=== PATIENT | female | born 1940 | race Caucasian/White ===

== ENCOUNTER 2018-12-30 22:08 | Inpatient (IN) | payer MEDICARE ==
[~2018-12-30] VITALS: Ht 154.9 cm; Wt 70.8 kg
[2018-12-30 23:17] LABS: BASOPHILS % (AUTO) 0.8 % (0.0-5.0); EOSINOPHILS % (AUTO) 1.2 % (0.0-8.0); HEMATOCRIT 39.4 % (36-48); LYMPHOCYTES % (AUTO) 20.1 % (21.0-51.0); MEAN CORPUSCULAR HEMOGLOBIN 29.8 pg (27.0-33.0); MEAN CORPUSCULAR HGB CONC 33.9 g/dL (32.0-36.0); MEAN CORPUSCULAR VOLUME 87.7 fL (79-99); NEUTROPHILS % (AUTO) 70.9 % (40.0-77.0); PLATELET COUNT (AUTO) 383 K/uL (130-400); RED BLOOD CELL COUNT(AUTO) 4.49 MIL/uL (4.00-5.50); RED CELL DISTRIBUTION WIDTH 13.3 % (11.0-15.5)
[2018-12-30 23:28] LABS: CREATININE 1.1 mg/dL (0.5-1.5); POTASSIUM 4.1 mmol/L (3.5-5.1)
[2018-12-30 23:31] LABS: INR 1.06 (0.85-1.15); PARTIAL THROMBOPLASTIN TIME 44.9 SEC (26.3-35.5); PROTHROMBIN TIME 11.1 SEC (9.6-11.6)
[2018-12-30 23:34] LABS: ALBUMIN 3.8 g/dL (3.5-5.0); BILIRUBIN,TOTAL 0.3 mg/dL (0.2-1.0); TOTAL PROTEIN, SERUM 8.1 g/dL (6.0-8.3)
[2018-12-30 23:51] LABS: B-TYPE NATRIURETIC PEPTIDE 102 pg/mL (0-100)
[2018-12-31] VITALS (7 sets, daily range): BP systolic 121–146; BP diastolic 55–73
[2018-12-31] MEDS ORDERED: MORPHINE SULFATE 2 MG/ML 1ML SYG IV PRN (03:15)
[2018-12-31] MEDS ORDERED: SODIUM CHLORIDE 0.9% 1000ML 1,000 ML IV SCH ×2 (03:45→16:07)
[2018-12-31 05:53] LABS: BASOPHILS % (AUTO) 1.3 % (0.0-5.0); EOSINOPHILS % (AUTO) 1.4 % (0.0-8.0); LYMPHOCYTES % (AUTO) 40.2 % (21.0-51.0); MEAN CORPUSCULAR HEMOGLOBIN 29.7 pg (27.0-33.0); MEAN CORPUSCULAR HGB CONC 33.7 g/dL (32.0-36.0); MEAN CORPUSCULAR VOLUME 88.2 fL (79-99); MONOCYTES % (AUTO) 7.3 % (3.0-13.0); NEUTROPHILS % (AUTO) 49.8 % (40.0-77.0); PLATELET COUNT (AUTO) 373 K/uL (130-400); RED BLOOD CELL COUNT(AUTO) 3.97 MIL/uL (4.00-5.50); RED CELL DISTRIBUTION WIDTH 13.4 % (11.0-15.5); WHITE BLOOD COUNT (AUTO) 8.9 K/uL (4.8-10.8)
[2018-12-31 06:07] LABS: HEMOGLOBIN A1C 5.9 % (4.0-6.0)
[2018-12-31 06:10] LABS: ALBUMIN 3.5 g/dL (3.5-5.0); BILIRUBIN,TOTAL 0.5 mg/dL (0.2-1.0); CREATININE 0.9 mg/dL (0.5-1.5); MAGNESIUM 1.2 mg/dL (1.80-2.40); POTASSIUM 3.6 mmol/L (3.5-5.1); TOTAL PROTEIN, SERUM 7.2 g/dL (6.0-8.3)
[2018-12-31] MEDS ORDERED: SODIUM CHLORIDE 0.9% 500ML 500 ML IV SCH (08:24)
[2018-12-31] MEDS ORDERED: CLOPIDOGREL BISULFATE 75 MG TAB PO SCH (08:30)
[2018-12-31] MEDS ORDERED: ASPIRIN 325MG EC TAB 325 MG TABLET.DR PO SCH (08:30)
[2018-12-31] MEDS ORDERED: CLOPIDOGREL BISULFATE 75 MG TAB ONE (08:49)
[2018-12-31] MEDS ORDERED: ASPIRIN 325 MG TABLET ONE (08:49)
[2018-12-31] MEDS: ENOXAPARIN SODIUM 30 MG/0.3 ML SQ SCH ×2 (09:00→20:11)
[2018-12-31] MEDS: FAMOTIDINE/PF 20 MG/2 ML VIAL IV SCH ×2 (09:00→20:09)
[2018-12-31] MEDS ORDERED: ASPIRIN 81MG TAB.CHEW PO SCH (09:00)
[2018-12-31] MEDS ORDERED: HYDRALAZINE HCL 20 MG/ML VIAL IV PRN ×2 (11:00→16:15)
[2018-12-31] MEDS ORDERED: ONDANSETRON HCL 4 MG/2 ML VIAL IVP PRN (11:00)
[2018-12-31] MEDS ORDERED: BIVALIRUDIN 250 MG/VIAL IV ONE (14:58)
[2018-12-31] MEDS ORDERED: MIDAZOLAM HCL 1 MG/ML 2ML VIAL ONE (14:59)
[2018-12-31] MEDS ORDERED: NITROGLYCERIN 5 MG/ML 10 ML VIAL IV ONE (14:59)
[2018-12-31] MEDS ORDERED: IOHEXOL-350 50ML VIAL IV ONE (14:59)
[2018-12-31] MEDS ORDERED: FENTANYL CITRATE PF 50 MCG/1 ML 2ML VIAL ONE (14:59)
[2018-12-31] MEDS ORDERED: LIDOCAINE HCL 2% 20ML ONE (14:59)
[2018-12-31] MEDS ORDERED: IOHEXOL 350 MG/ML 100ML INFUS..BTL IV ONE (14:59)
[2018-12-31] MEDS ORDERED: TICAGRELOR 90 MG TABLET ONE (16:04)
[2018-12-31] MEDS ORDERED: HYDRALAZINE HCL 20 MG/ML VIAL ONE (16:12)
[2018-12-31] MEDS ORDERED: NITROGLYCERIN 0.4 MG SL TAB SL PRN (16:15)
[2018-12-31] MEDS ORDERED: METOPROLOL TARTRATE 1 MG/ML 5ML VIAL IV PRN (16:15)
[2018-12-31] MEDS: INSULIN HUMULIN R 100 UNIT/ML 3ML SQ SCH (18:00)
[2018-12-31] MEDS: NITROGLYCERIN 1GM/1 INCH PACKET TD SCH ×2 (18:04→20:12)
[2018-12-31] MEDS: METOPROLOL TARTRATE 50 MG TAB PO SCH (20:09)
[2018-12-31] MEDS: TICAGRELOR 90 MG TABLET PO SCH (20:30)
[2018-12-31] MEDS ORDERED: ATORVASTATIN CALCIUM 20 MG TABLET PO SCH (21:00)
[2018-12-31] MEDS ORDERED: TRAMADOL HCL 50 MG TABLET PO ONE (21:20)
[2019-01-01 00:12] VITALS: BP 122/59
[2019-01-01] MEDS: NITROGLYCERIN 1GM/1 INCH PACKET TD SCH (04:15)
[2019-01-01 04:16] VITALS: BP 122/62
[2019-01-01] MEDS: INSULIN HUMULIN R 100 UNIT/ML 3ML SQ SCH ×3 (06:00→12:00)
--- NOTE | 2019-01-01 06:39 | NUR ---
PATIENT RESTING IN BED, R GROIN SOFT, NO BLEEDING, NO HEMATOMA. DENIES CHEST PAIN. PEDAL PULSE PALPABLE.
[2019-01-01 07:09] LABS: ALBUMIN 3.2 g/dL (3.5-5.0); BILIRUBIN,TOTAL 0.4 mg/dL (0.2-1.0); CREATININE 1.1 mg/dL (0.5-1.5); MAGNESIUM 1.2 mg/dL (1.80-2.40); POTASSIUM 3.5 mmol/L (3.5-5.1); TOTAL PROTEIN, SERUM 6.7 g/dL (6.0-8.3)
[2019-01-01] MEDS: TICAGRELOR 90 MG TABLET PO SCH (07:39)
[2019-01-01] MEDS: METOPROLOL TARTRATE 50 MG TAB PO SCH (07:39)
[2019-01-01] MEDS: FAMOTIDINE/PF 20 MG/2 ML VIAL IV SCH (07:40)
[2019-01-01] MEDS: ENOXAPARIN SODIUM 30 MG/0.3 ML SQ SCH (07:40)
--- NOTE | 2019-01-01 08:00 | NUR ---
ASSESSMENT PT IS AAOX3 DENIES CP DENIES SOB DENIES NV NO COMPLAINTS RESTING IN BED. RIGHT GROIN CATH SITE DRESSING IN PLACE, CLEAN DRY AND INTACT. CALL LIGHT WITHIN REACH.
[2019-01-01 08:02] VITALS: BP 110/90
[2019-01-01] MEDS ORDERED: LOSARTAN 50 MG TABLET PO SCH (09:00)
[2019-01-01] MEDS ORDERED: ASPIRIN 81MG TAB.CHEW PO SCH (09:00)
[2019-01-01] MEDS ORDERED: AMLO10TA7 PO (11:02)
[2019-01-01] MEDS ORDERED: PIOG15TA66 PO (11:02)
[2019-01-01] MEDS ORDERED: FENO145T37 PO (11:02)
[2019-01-01] MEDS ORDERED: SITA100T12 PO (11:02)
[2019-01-01] MEDS ORDERED: METF-446 PO (11:02)
[2019-01-01] MEDS ORDERED: MAGN250T2 PO (11:02)
[2019-01-01] MEDS ORDERED: ATEN50TA PO (11:02)
[2019-01-01] MEDS ORDERED: OMEP20TA25 PO (11:02)
[2019-01-01] MEDS ORDERED: VALS1TAB75 PO (11:02)
--- NOTE | 2019-01-01 12:56 | NUR ---
REFUSED VACCINES STATES SHE WILL GET AT [facility]
--- NOTE | 2019-01-01 12:57 | NUR ---
DISCHARGE PATIENT AND VERBALIZE DC INSTRUCTIONS UNDERSTANDING AGREE TO TAKE MEDICATIONS ORDERED AGREE TO FOLLOW UP WITH MD ORDERED, ALL QUESTIONS ANSWERED, PIV REMOVED CATH TIP INTACT TELE PACK REMOVED. DOWN VIA WC TO VEHICLE
--- NOTE | 2019-01-01 13:15 | NUR ---
D/C PLAN CM spoke to pt regarding d/c planning. Pt is [place] and lives with spouse. States spouse can assist in care as needed. Plan to home. No needs verbalized or identified. Addendum: 01/01/19 at 1316 by MESERET FIELDS CM Amended: Links added.
== END 2019-01-01 13:04 | disposition home or self-care (01) | DRG 246 ==
LOC: EDH 22:08 → EDHIP 12-31 03:04 → 2DH 12-31 16:35
PROVIDERS: ADMIT Internal Medicine; ATTEND Internal Medicine
PROC: 027034Z Dilation of Coronary Artery, One Artery with Drug-eluting Intraluminal Device, Percutaneous Approach (ICD-10-PCS; principal; 2018-12-31)
PROC: 4A023N7 Measurement of Cardiac Sampling and Pressure, Left Heart, Percutaneous Approach (ICD-10-PCS; 2018-12-31)
PROC: B2111ZZ Fluoroscopy of Multiple Coronary Arteries using Low Osmolar Contrast (ICD-10-PCS; 2018-12-31)
PROC: B2151ZZ Fluoroscopy of Left Heart using Low Osmolar Contrast (ICD-10-PCS; 2018-12-31)
DX: I21.4 Non-ST elevation (NSTEMI) myocardial infarction (principal); I50.33 Acute on chronic diastolic (congestive) heart failure; E11.65 Type 2 diabetes mellitus with hyperglycemia; E66.9 Obesity, unspecified; E78.5 Hyperlipidemia, unspecified; I24.9 Acute ischemic heart disease, unspecified; I25.110 Atherosclerotic heart disease of native coronary artery with unstable angina pectoris; Z68.29 Body mass index [BMI] 29.0-29.9, adult; Z79.82 Long term (current) use of aspirin; Z79.899 Other long term (current) drug therapy; Z90.710 Acquired absence of both cervix and uterus; Z87.891 Personal history of nicotine dependence; Z88.8 Allergy status to other drugs, medicaments and biological substances; Z88.5 Allergy status to narcotic agent; Z86.79 Personal history of other diseases of the circulatory system; Z83.3 Family history of diabetes mellitus; Z82.49 Family history of ischemic heart disease and other diseases of the circulatory system; I11.0 Hypertensive heart disease with heart failure
CPT/HCPCS: 36415; 71045; 80053; 80061; 82550; 82948; 83036; 83735; 83880; 84443; 84484; 85025; 85610; 85730; 93005; 93306; 93458; 99156; 99157; 99291; C1760; C1887; C1894; C9600; G0378; J0360; J0583; J1644; J1650; J2250; J3010; J3490; Q9967

== ENCOUNTER 2019-02-12 10:46 | Emergency (ER) | payer MEDICARE ==
[~2019-02-12 10:46] MED LIST: MAGN250T2 PO; METF-446 PO; OMEP20TA25 PO; PIOG15TA66 PO; SITA100T12 PO
[2019-02-12 11:43] LABS: BASOPHILS % (AUTO) 0.5 % (0.0-5.0); EOSINOPHILS % (AUTO) 2.6 % (0.0-8.0); HEMATOCRIT 34.9 % (36-48); MEAN CORPUSCULAR VOLUME 87.6 fL (79-99); MONOCYTES % (AUTO) 8.4 % (3.0-13.0); NEUTROPHILS % (AUTO) 69.5 % (40.0-77.0); PLATELET COUNT (AUTO) 309 K/uL (130-400); RED BLOOD CELL COUNT(AUTO) 3.98 MIL/uL (4.00-5.50); RED CELL DISTRIBUTION WIDTH 13.9 % (11.0-15.5); WHITE BLOOD COUNT (AUTO) 9.1 K/uL (4.8-10.8)
[2019-02-12] MEDS ORDERED: BENZONATATE 100 MG CAPSULE PO ONE (12:07)
[2019-02-12 12:14] LABS: CREATININE 0.6 mg/dL (0.5-1.5); POTASSIUM 3.6 mmol/L (3.5-5.1)
[2019-02-12 12:21] LABS: ALBUMIN 3.5 g/dL (3.5-5.0); BILIRUBIN,TOTAL 0.6 mg/dL (0.2-1.0); TOTAL PROTEIN, SERUM 6.5 g/dL (6.0-8.3)
[2019-02-12 13:04] LABS: INR 0.95 (0.85-1.15); PARTIAL THROMBOPLASTIN TIME 24.4 SEC (26.3-35.5)
[2019-02-12 13:28] LABS: B-TYPE NATRIURETIC PEPTIDE 289 pg/mL (0-100)
[2019-02-12] MEDS ORDERED: FUROSEMIDE 10 MG/ML 4ML VIAL ONE (13:34)
[2019-02-12] MEDS ORDERED: NITROGLYCERIN 1GM/1 INCH PACKET TD ONE (13:35)
[2019-02-12] MEDS ORDERED: IOHEXOL 350 MG/ML 100ML INFUS..BTL IV ONE (13:51)
== END 2019-02-12 16:36 | disposition home or self-care (01) ==
LOC: EDH 10:46
DX: I11.0 Hypertensive heart disease with heart failure (principal); I50.9 Heart failure, unspecified; R06.00 Dyspnea, unspecified; J45.909 Unspecified asthma, uncomplicated; R60.0 Localized edema; E11.9 Type 2 diabetes mellitus without complications; Z90.49 Acquired absence of other specified parts of digestive tract; Z90.710 Acquired absence of both cervix and uterus; Z98.890 Other specified postprocedural states; Z87.891 Personal history of nicotine dependence; Z88.6 Allergy status to analgesic agent
CPT/HCPCS: 36415; 71045; 71275; 80053; 82550; 83880; 84484; 85025; 85378; 85610; 85730; 87804 ×2; 93005; 93970; 96374; 99285; J1940; Q9967